=== PATIENT | female | born 1965 | race Caucasian/White ===

== ENCOUNTER → 2016-11-07 | Outpatient (REF) | payer BC, OTHER ==
[~2016-11-07] MED LIST: AZEL0.1S3; COLA100C5 PO; COUM1TAB17 PO; COUM2.5T17 PO; LEVO75TA4 PO; MAPA325T2 PO; NORCOTAB PO; PERC5TAB12 PO; SENN18TA PO; TRAZ50TA11 PO; VITA200038 PO; ZOLO100T PO
[2016-11-07 12:47] LABS: MEAN CORPUSCULAR HEMOGLOBIN 31.1 pg (27.0-33.0); MEAN CORPUSCULAR HGB CONC 34.5 g/dl (32.0-36.5); MEAN CORPUSCULAR VOLUME 90.1 fl (80.0-96.0); RED CELL DISTRIBUTION WIDTH 13.7 % (11.5-14.5)
[2016-11-07 13:30] LABS: ALBUMIN 3.8 GM/DL (3.2-5.2); ALBUMIN/GLOBULIN RATIO 1.31 (1.00-1.93); ALKALINE PHOSPHATASE 54 U/L (45-117); ALT/SGPT 19 U/L (12-78); ANION GAP 7 MEQ/L (8-16); AST/SGOT 14 U/L (15-37); BILIRUBIN,TOTAL 0.5 MG/DL (0.2-1.0); BLOOD UREA NITROGEN 17 MG/DL (7-18); CALCIUM LEVEL 9.2 MG/DL (8.5-10.1); CARBON DIOXIDE LEVEL 31 MEQ/L (21-32); CHLORIDE LEVEL 107 MEQ/L (98-107); CHOLESTEROL LEVEL 224 MG/DL (<200); CREATININE FOR GFR 0.76 MG/DL (0.55-1.02); FREE T4 1.17 NG/DL (0.76-1.46); GLOMERULAR FILTRATION RATE > 60.0 (>51); GLUCOSE, FASTING 80 MG/DL (70-105); POTASSIUM SERUM 3.9 MEQ/L (3.5-5.1); SODIUM LEVEL 145 MEQ/L (136-145); TOTAL PROTEIN 6.7 GM/DL (6.4-8.2); TRIGLYCERIDES LEVEL 88 MG/DL (<150)
== END ==
LOC: M LABDRAW1 11:34
PROVIDERS: ATTEND Nurse Practitioner Family
DX: K21.9 Gastro-esophageal reflux disease without esophagitis (principal); E78.2 Mixed hyperlipidemia; E03.9 Hypothyroidism, unspecified; Z11.59 Encounter for screening for other viral diseases; E55.9 Vitamin D deficiency, unspecified

== ENCOUNTER → 2017-01-06 | Outpatient (CLI) | payer BC ==
[2017-01-06 20:50] LABS: MEAN CORPUSCULAR HEMOGLOBIN 30.5 pg (27.0-33.0); MEAN CORPUSCULAR VOLUME 89.8 fl (80.0-96.0); RED CELL DISTRIBUTION WIDTH 13.2 % (11.5-14.5)
[2017-01-06 21:28] LABS: ERYTHROCYTE SEDIMENTATION RATE 5 mm/hr (0-30)
[2017-01-06 21:34] LABS: BASOPHILS 2 % (0-4); EOSINOPHILS 2 % (0-5)
== END ==
LOC: M WUC 16:46
PROVIDERS: ATTEND Physician Assistant Surgical
DX: M84.351D Stress fracture, right femur, subsequent encounter for fracture with routine healing (principal)

== ENCOUNTER 2017-03-11 14:44 | Outpatient (RCR) | payer BC | END 2017-03-22 | LOC: M PT 14:44 | DX: Z96.641 Presence of right artificial hip joint (principal) | CPT/HCPCS: 97110 ==

== ENCOUNTER 2017-03-25 14:35 | Outpatient (RCR) | payer BC | END 2017-04-22 | LOC: M PT 14:35 | DX: Z51.89 Encounter for other specified aftercare (principal); Z96.641 Presence of right artificial hip joint | CPT/HCPCS: 97110 ==